=== PATIENT | female | born 1950 | race Two or more races ===

== ENCOUNTER 2017-08-10 13:14 | Emergency (ER) | payer MEDICARE, OTHER ==
[~2017-08-10] VITALS: Ht 154.9 cm; Wt 82.0 kg
[~2017-08-10 13:14] MED LIST: PROVENTIL; SINGULAIR
[2017-08-10 14:20] LABS: INR 1.1; PROTHROMBIN TIME 11.1 sec (9.4-11.6)
[2017-08-10 14:21] LABS: BASOPHILS % 0.2 % (0.0-2.0); EOSINOPHILS % 1.4 % (0.0-5.0); HEMATOCRIT. 39.7 % (36.0-48.0); HEMOGLOBIN. 12.8 g/dL (12.0-16.0); LYMPHOCYTES % 26.8 % (20.0-50.0); MEAN CORPUSCULAR HEMOGLOBIN 25.8 pg (28.0-32.0); MEAN CORPUSCULAR VOLUME 79.8 fL (81.0-99.0); MEAN PLATELET VOLUME 7.9 fl (7.4-10.4); MONOCYTES % 8.5 % (2.0-8.0); NEUTROPHILS % 63.1 % (40.0-76.0); PLATELET 225 x1000/uL (130-400); RED BLOOD CELL COUNT 4.98 mill/uL (4.2-5.4); RED CELL DISTRIBUTION WIDTH 18.7 % (11.6-14.6)
[2017-08-10 14:28] LABS: CARBON DIOXIDE 24 mEq/L (21-32); CHLORIDE 105 mEq/L (98-107); TROPONIN I < 0.02 ng/mL (0.00-0.04)
[2017-08-10] MEDS ORDERED: ALBUTEROL (0.083%) 2.5MG/3ML NEB HHN STA (15:11)
[2017-08-10] MEDS ORDERED: IPRATROPIUM BROMIDE (0.02%) 0.5MG/2.5ML NEB HHN STA (15:11)
[2017-08-10 16:08] VITALS: BP 131/64
== END 2017-08-10 16:28 | disposition home or self-care (01) ==
LOC: ER 13:56
DX: J45.909 Unspecified asthma, uncomplicated (principal); I10 Essential (primary) hypertension; Z88.8 Allergy status to other drugs, medicaments and biological substances; Z90.49 Acquired absence of other specified parts of digestive tract; Z86.718 Personal history of other venous thrombosis and embolism
CPT/HCPCS: 36415; 71010; 78582; 80053; 83880; 84484; 85025; 85610; 93005; 94640; 99285; A9540; A9558; J7611

== ENCOUNTER 2021-09-05 17:50 | Inpatient (IN) | payer MEDICARE, OTHER ==
[~2021-09-05] VITALS: Ht 154.9 cm; Wt 81.6 kg
[2021-09-05] MEDS ORDERED: DILTIAZEM HCL 5MG/ML 5ML VIAL IV ONE (18:00)
[2021-09-05 18:31] LABS: BASOPHILS % 0.3 % (0.0-2.0); EOSINOPHILS % 0.3 % (0.0-5.0); HEMATOCRIT. 42.4 % (36.0-48.0); HEMOGLOBIN. 13.5 g/dL (12.0-16.0); LYMPHOCYTES % 34.7 % (20.0-50.0); MEAN CORPUSCULAR HEMOGLOBIN 25.9 pg (28.0-32.0); MEAN CORPUSCULAR VOLUME 81.5 fL (81.0-99.0); MEAN PLATELET VOLUME 8.5 fl (7.4-10.4); NEUTROPHILS % 54.7 % (40.0-76.0); PLATELET 239 x1000/uL (130-400); RED CELL DISTRIBUTION WIDTH 17.1 % (11.6-14.6)
[2021-09-05 18:35] LABS: CHLORIDE 107 mEq/L (98-107)
[2021-09-05 18:37] LABS: PROTHROMBIN TIME 10.6 sec (9.6-11.0)
[2021-09-05] MEDS ORDERED: ONDANSETRON HCL 4MG/2ML INJ IV ONE (19:30)
[2021-09-05] MEDS ORDERED: SODIUM CHLORIDE 0.9% 500 ML IV ONE (19:30)
[2021-09-05] MEDS ORDERED: DILTIAZEM HCL 5MG/ML 5ML VIAL IV NR (22:15)
[2021-09-05] MEDS ORDERED: DILTIAZEM HCL 60MG TABLET PO ONE (23:00)
[2021-09-06] MEDS ORDERED: ACETAMINOPHEN 325MG TABLET PO PRN (10:00)
[2021-09-06] MEDS ORDERED: IPRATROPIUM/ALBUTEROL 0.5-3(2.5)MG/3ML NEB HHN PRN (10:00)
[2021-09-06] MEDS ORDERED: MAGNESIUM/ALUMINUM HYDROXIDE/SIMETHICONE 30ML UDC PO PRN (10:00)
[2021-09-06] MEDS ORDERED: HYDROCODONE/ACETAMINOPHEN 5/325MG TABLET PO PRN (10:00)
[2021-09-06] MEDS ORDERED: CLONIDINE 0.1MG TABLET PO PRN (10:00)
[2021-09-06] MEDS ORDERED: NALOXONE HCL 0.4MG/ML VIAL IV PRN (10:15)
[2021-09-06] MEDS ORDERED: DILTIAZEM HCL 5MG/ML 5ML VIAL IV PRN (13:30)
[2021-09-06 15:00] VITALS: BP 139/39
[2021-09-06] MEDS: OMEPRAZOLE 20MG CAPSULE EXTENDED RELEASE PO SCH (15:40)
[2021-09-06] MEDS: APIXABAN 5 MG TABLET PO SCH ×2 (15:41→21:32)
[2021-09-06] MEDS: DILTIAZEM HCL 30MG TABLET PO SCH ×2 (15:41→21:31)
[2021-09-06] MEDS: SODIUM CHLORIDE 0.9% 1,000 ML IV SCH (15:42)
[2021-09-06 16:00] VITALS: BP 139/93
[2021-09-06] MEDS ORDERED: DILT180T11 PO (16:26)
[2021-09-06] MEDS ORDERED: PANT40TA51 PO (16:27)
[2021-09-06] MEDS ORDERED: CALC-769 MT (16:34)
[2021-09-06] MEDS ORDERED: APIX2.5T PO (16:34)
[2021-09-06] MEDS ORDERED: FLUT15.844 BOTHNSTRLS (16:34)
[2021-09-06] MEDS ORDERED: LORA10TA7 PO (16:34)
[2021-09-06] MEDS ORDERED: MONT10TA21 PO (16:34)
[2021-09-06] MEDS ORDERED: MELA1TAB51 MT (16:34)
[2021-09-06 20:00] VITALS: BP 108/76
[2021-09-07] VITALS (7 sets, daily range): BP systolic 95–118; BP diastolic 66–81
[2021-09-07] MEDS: DILTIAZEM HCL 30MG TABLET PO SCH ×2 (05:48→14:30)
[2021-09-07] MEDS: OMEPRAZOLE 20MG CAPSULE EXTENDED RELEASE PO SCH (05:48)
[2021-09-07] MEDS: SODIUM CHLORIDE 0.9% 1,000 ML IV SCH (06:19)
[2021-09-07] MEDS: DOCUSATE SODIUM 100MG CAPSULE PO PRN (06:27)
[2021-09-07 07:01] LABS: BASOPHILS % 0.4 % (0.0-2.0); EOSINOPHILS % 1.6 % (0.0-5.0); HEMATOCRIT. 38.9 % (36.0-48.0); HEMOGLOBIN. 12.5 g/dL (12.0-16.0); LYMPHOCYTES % 51.5 % (20.0-50.0); MEAN CORPUSCULAR HEMOGLOBIN 26.4 pg (28.0-32.0); MEAN CORPUSCULAR VOLUME 82.3 fL (81.0-99.0); MONOCYTES % 13.6 % (2.0-8.0); NEUTROPHILS % 32.9 % (40.0-76.0); PLATELET 203 x1000/uL (130-400); RED BLOOD CELL COUNT 4.74 mill/uL (4.2-5.4); RED CELL DISTRIBUTION WIDTH 16.9 % (11.6-14.6)
[2021-09-07 07:16] LABS: CHLORIDE 112 mEq/L (98-107)
[2021-09-07 07:22] LABS: PHOSPHORUS 3.9 mg/dL (2.5-4.9)
[2021-09-07 07:23] LABS: LDL CHOLESTEROL 63 mg/dL (5-100)
[2021-09-07 07:24] LABS: HDL CHOLESTEROL 72 mg/dL (40-59)
[2021-09-07 07:26] LABS: T4 FREE 1.18 ng/dL (0.76-1.46)
[2021-09-07 07:53] LABS: CLARITY URINE CLEAR (CLEAR); COLOR URINE YELLOW (YELLOW); KETONES URINE NEGATIVE (NEGATIVE); LEUKOCYTE ESTERASE URINE TRACE (NEGATIVE); NITRITE URINE NEGATIVE (NEGATIVE); OCCULT BLOOD URINE NEGATIVE (NEGATIVE); PROTEIN URINE NEGATIVE (NEGATIVE); SPECIFIC GRAVITY URINE 1.013 (1.005-1.030); UROBILINOGEN URINE 0.2 E.U./dL (0.2-1.0)
[2021-09-07 08:10] LABS: *AMPHETAMINES SCREEN URINE NEGATIVE (NEGATIVE); *BARBITURATES SCREEN URINE NEGATIVE (NEGATIVE); *BENZODIAZEPINES SCREEN URINE NEGATIVE (NEGATIVE); *COCAINE SCREEN URINE NEGATIVE (NEGATIVE); METHADONE URINE SCREEN NEGATIVE (NEGATIVE)
[2021-09-07 08:11] LABS: CANNABINOID URINE SCREEN NEGATIVE (NEGATIVE); OPIATES URINE SCREEN NEGATIVE (NEGATIVE); PHENCYCLIDINE URINE SCREEN NEGATIVE (NEGATIVE)
[2021-09-07] MEDS: APIXABAN 5 MG TABLET PO SCH ×2 (08:36→21:04)
[2021-09-07] MEDS ORDERED: ATOR20TA65 PO (15:12)
[2021-09-07] MEDS: MONTELUKAST SODIUM 10MG TABLET PO SCH (17:08)
[2021-09-07] MEDS ORDERED: ATORVASTATIN CALCIUM 20MG TABLET PO SCH (21:00)
[2021-09-08] VITALS: BP 107/68
[2021-09-08 04:00] VITALS: BP 103/79
[2021-09-08] MEDS: OMEPRAZOLE 20MG CAPSULE EXTENDED RELEASE PO SCH (06:19)
[2021-09-08 06:34] LABS: BASOPHILS % 0.1 % (0.0-2.0); EOSINOPHILS % 1.2 % (0.0-5.0); HEMATOCRIT. 38.7 % (36.0-48.0); HEMOGLOBIN. 12.4 g/dL (12.0-16.0); MEAN CORPUSCULAR HEMOGLOBIN 26.2 pg (28.0-32.0); MEAN CORPUSCULAR VOLUME 81.4 fL (81.0-99.0); MEAN PLATELET VOLUME 8.9 fl (7.4-10.4); MONOCYTES % 12.8 % (2.0-8.0); NEUTROPHILS % 31.9 % (40.0-76.0); PLATELET 200 x1000/uL (130-400); RED BLOOD CELL COUNT 4.75 mill/uL (4.2-5.4); RED CELL DISTRIBUTION WIDTH 17.1 % (11.6-14.6)
[2021-09-08 07:50] VITALS: BP 125/86
[2021-09-08] MEDS ORDERED: MORPHINE SULFATE 2 MG/ML CPJ (NOT FOR IM USE) IV PRN (08:30)
[2021-09-08] MEDS: APIXABAN 5 MG TABLET PO SCH (08:38)
[2021-09-08] MEDS: DOCUSATE SODIUM 100MG CAPSULE PO PRN (08:39)
[2021-09-08] MEDS ORDERED: LORATADINE 10MG TABLET PO SCH (09:00)
[2021-09-08] MEDS ORDERED: DILTIAZEM HCL 180MG CAPSULE CD 24HR PO SCH (09:00)
[2021-09-08] MEDS ORDERED: CALCIUM CARBONATE/VITAMIN D3 500MG TABLET PO SCH (09:00)
[2021-09-08] MEDS ORDERED: BUDESONIDE 0.5MG/2ML NEB HHN SCH (09:30)
[2021-09-08 12:00] VITALS: BP 114/53
[2021-09-08] MEDS ORDERED: ALBUTEROL (0.083%) 2.5MG/3ML NEB HHN SCH (12:00)
[2021-09-08 13:11] VITALS: BP 114/53
[2021-09-08 16:00] VITALS: BP 110/68
[2021-09-08] MEDS: MONTELUKAST SODIUM 10MG TABLET PO SCH (17:04)
== END 2021-09-08 17:45 | disposition home or self-care (01) | DRG 309 ==
LOC: ER 17:50 → 7EST 23:27 → ENRESERV 09-06 10:38
PROVIDERS: ADMIT Internal Medicine; ATTEND Internal Medicine
DX: I48.91 Unspecified atrial fibrillation (principal); N17.9 Acute kidney failure, unspecified; I47.1 Supraventricular tachycardia; E78.5 Hyperlipidemia, unspecified; J45.909 Unspecified asthma, uncomplicated; N18.2 Chronic kidney disease, stage 2 (mild); I12.9 Hypertensive chronic kidney disease with stage 1 through stage 4 chronic kidney disease, or unspecified chronic kidney disease; I42.9 Cardiomyopathy, unspecified; I27.20 Pulmonary hypertension, unspecified; E66.01 Morbid (severe) obesity due to excess calories; Z68.34 Body mass index [BMI] 34.0-34.9, adult; Z79.01 Long term (current) use of anticoagulants; Z85.42 Personal history of malignant neoplasm of other parts of uterus; Z86.16 Personal history of COVID-19; Z86.718 Personal history of other venous thrombosis and embolism; Z90.710 Acquired absence of both cervix and uterus; Z85.41 Personal history of malignant neoplasm of cervix uteri; Z88.8 Allergy status to other drugs, medicaments and biological substances; Z88.2 Allergy status to sulfonamides; Z91.041 Radiographic dye allergy status; Z90.49 Acquired absence of other specified parts of digestive tract; Z98.891 History of uterine scar from previous surgery
CPT/HCPCS: 36415; 71045; 78580; 80048; 80053; 80061; 80076; 80305; 81003; 83735; 83880; 84100; 84439; 84443; 84484; 85025; 93005; 93306; 93970; 97162; 97166; 99291; J2270; J2405; J3490; J7040; A4315

== ENCOUNTER 2022-01-22 13:44 | Inpatient (IN) | payer MEDICARE, OTHER ==
[~2022-01-22] VITALS: Ht 154.9 cm; Wt 86.2 kg
[~2022-01-22 13:44] MED LIST changes: +APIX2.5T PO; +ATOR20TA65 PO; +CALC-769 MT; +DILT180T11 PO; +FLUT15.844 BOTHNSTRLS; +LORA10TA7 PO; +MELA1TAB51 MT; +MONT10TA21 PO; +PANT40TA51 PO; -PROVENTIL; -SINGULAIR
[2022-01-22 15:30] LABS: HEMATOCRIT. 38.2 % (36.0-48.0); HEMOGLOBIN. 12.4 g/dL (12.0-16.0); MEAN CORPUSCULAR HEMOGLOBIN 25.4 pg (28.0-32.0); MEAN CORPUSCULAR VOLUME 78.2 fL (81.0-99.0); MEAN PLATELET VOLUME 8.8 fl (7.4-10.4); PLATELET 167 x1000/uL (130-400); RED BLOOD CELL COUNT 4.89 mill/uL (4.2-5.4)
[2022-01-22 15:40] LABS: CHLORIDE 108 mEq/L (98-107)
[2022-01-22 16:14] LABS: PLATELET ESTIMATE NORMAL
[2022-01-23] MEDS ORDERED: DOCUSATE SODIUM 100MG CAPSULE PO PRN (01:00)
[2022-01-23] MEDS ORDERED: ONDANSETRON HCL 4MG/2ML INJ IV PRN (01:00)
[2022-01-23] MEDS ORDERED: IPRATROPIUM/ALBUTEROL 0.5-3(2.5)MG/3ML NEB HHN PRN (01:00)
[2022-01-23] MEDS ORDERED: CEFTRIAXONE 1 G PREMIX 50 ML IV SCH (01:00)
[2022-01-23 01:30] VITALS: BP 140/64
[2022-01-23] MEDS ORDERED: CEFTRIAXONE 1,000 MG in DEXTROSE 5% WATER 50 ML IV SCH (03:00)
[2022-01-23 03:07] LABS: HEMOGLOBIN. 12.5 g/dL (12.0-16.0); MEAN CORPUSCULAR HEMOGLOBIN 24.8 pg (28.0-32.0); MEAN CORPUSCULAR VOLUME 77.4 fL (81.0-99.0); MEAN PLATELET VOLUME 8.9 fl (7.4-10.4); PLATELET 177 x1000/uL (130-400); RED BLOOD CELL COUNT 5.03 mill/uL (4.2-5.4); RED CELL DISTRIBUTION WIDTH 19.6 % (11.6-14.6)
[2022-01-23 03:09] LABS: CHLORIDE 111 mEq/L (98-107)
[2022-01-23 03:19] LABS: PROTHROMBIN TIME 10.9 sec (9.6-11.0)
[2022-01-23] MEDS ORDERED: TRET20CR TP (03:19)
[2022-01-23] MEDS ORDERED: BENZ200C52 MT (03:19)
[2022-01-23] MEDS ORDERED: FLUT9.9S BOTHNSTRLS (03:19)
[2022-01-23] MEDS ORDERED: FAMO20TA8 MT (03:19)
[2022-01-23] MEDS ORDERED: FLEC100T2 MT (03:19)
[2022-01-23] MEDS ORDERED: LACT10SO7 MT (03:19)
[2022-01-23] MEDS ORDERED: CHOL400D7 PO (03:19)
[2022-01-23] MEDS ORDERED: PROM6.254 MT (03:19)
[2022-01-23] MEDS ORDERED: OMEP40CA20 MT (03:19)
[2022-01-23] MEDS ORDERED: ESCI5TAB16 PO (03:19)
[2022-01-23] MEDS ORDERED: CETI10CA2 MT (03:19)
[2022-01-23] MEDS ORDERED: APIX5TAB MT (03:19)
[2022-01-23] MEDS ORDERED: AZIT250T12 MT (03:19)
[2022-01-23] MEDS ORDERED: HYDROQUINONE TOP (03:19)
[2022-01-23] MEDS ORDERED: BUDE6HFA INH (03:19)
[2022-01-23] MEDS ORDERED: EPIN0.3P3 IM (03:19)
[2022-01-23] MEDS ORDERED: AZEL137S7 BOTHNSTRLS (03:19)
[2022-01-23] MEDS ORDERED: ASCO-362 PO (03:19)
[2022-01-23] MEDS ORDERED: SIME80TA15 PO (03:19)
[2022-01-23] MEDS ORDERED: ATOR20TA65 MT (03:19)
[2022-01-23] MEDS ORDERED: ALBU05 NEB (03:19)
[2022-01-23] MEDS ORDERED: ACET-2708 MT (03:19)
[2022-01-23] MEDS ORDERED: CARB15DR EACHEYE (03:19)
[2022-01-23] MEDS ORDERED: CALC-586 MT (03:19)
[2022-01-23] MEDS ORDERED: DILT120C11 MT (03:19)
[2022-01-23 03:53] LABS: PLATELET ESTIMATE NORMAL
[2022-01-23 04:00] VITALS: BP 127/52
[2022-01-23] MEDS: ENOXAPARIN 100MG/ML SYR SUBCUT SCH ×2 (05:27→17:04)
[2022-01-23] MEDS: GUAIFENESIN 200MG/10ML SUGAR FREE UDC PO PRN (05:27)
[2022-01-23] MEDS ORDERED: OMEPRAZOLE 20MG CAPSULE EXTENDED RELEASE PO SCH (06:45)
[2022-01-23 08:25] LABS: CLARITY URINE CLEAR (CLEAR); COLOR URINE YELLOW (YELLOW); KETONES URINE NEGATIVE (NEGATIVE); LEUKOCYTE ESTERASE URINE NEGATIVE (NEGATIVE); NITRITE URINE NEGATIVE (NEGATIVE); OCCULT BLOOD URINE NEGATIVE (NEGATIVE); PH URINE 5.5 (4.5-8.0); PROTEIN URINE NEGATIVE (NEGATIVE); SPECIFIC GRAVITY URINE 1.014 (1.005-1.030); UROBILINOGEN URINE 0.2 E.U./dL (0.2-1.0)
[2022-01-23 08:27] VITALS: BP 127/60
[2022-01-23] MEDS: CEFEPIME 1,000 MG in DEXTROSE 5% WATER 50 ML IV SCH (10:12)
[2022-01-23] MEDS: DILTIAZEM HCL 60MG TABLET PO SCH (10:12)
[2022-01-23 12:00] VITALS: BP 125/62
[2022-01-23 16:00] VITALS: BP 130/67
[2022-01-23] MEDS: CETIRIZINE 10MG TABLET PO SCH (16:57)
[2022-01-23 20:00] VITALS: BP 104/37
[2022-01-23] MEDS: DOXEPIN HCL 25MG CAPSULE PO SCH (21:00)
[2022-01-23] MEDS: ATORVASTATIN CALCIUM 20MG TABLET PO SCH (21:33)
[2022-01-23] MEDS: FAMOTIDINE 20MG TABLET PO SCH (21:33)
[2022-01-23] MEDS: FLUTICASONE PROPIONATE 50MCG/SPRAY BOTTLE BOTHNSTRLS SCH (21:34)
[2022-01-24] VITALS: BP 130/52
[2022-01-24 04:00] VITALS: BP 173/84
[2022-01-24] MEDS: ENOXAPARIN 100MG/ML SYR SUBCUT SCH ×2 (05:13→17:36)
[2022-01-24] MEDS: GUAIFENESIN 200MG/10ML SUGAR FREE UDC PO PRN ×2 (05:16→20:42)
[2022-01-24] MEDS: ACETAMINOPHEN 325MG TABLET PO PRN (05:36)
[2022-01-24 07:41] LABS: BASOPHILS % 0.2 % (0.0-2.0); HEMATOCRIT. 36.5 % (36.0-48.0); HEMOGLOBIN. 11.9 g/dL (12.0-16.0); LYMPHOCYTES % 58.5 % (20.0-50.0); MEAN CORPUSCULAR HEMOGLOBIN 25.4 pg (28.0-32.0); MEAN PLATELET VOLUME 8.8 fl (7.4-10.4); MONOCYTES % 13.8 % (2.0-8.0); NEUTROPHILS % 25.5 % (40.0-76.0); PLATELET 167 x1000/uL (130-400); RED BLOOD CELL COUNT 4.68 mill/uL (4.2-5.4); RED CELL DISTRIBUTION WIDTH 19.8 % (11.6-14.6)
[2022-01-24 08:00] VITALS: BP 145/60
[2022-01-24] MEDS: CETIRIZINE 10MG TABLET PO SCH (10:43)
[2022-01-24] MEDS: DILTIAZEM HCL 60MG TABLET PO SCH (10:43)
[2022-01-24] MEDS: CEFEPIME 1,000 MG in DEXTROSE 5% WATER 50 ML IV SCH (11:24)
[2022-01-24] MEDS: FLUTICASONE PROPIONATE 50MCG/SPRAY BOTTLE BOTHNSTRLS SCH ×2 (11:25→20:44)
[2022-01-24 12:00] VITALS: BP 142/55
[2022-01-24] MEDS: FLECAINIDE 50MG TABLET PO SCH ×2 (14:35→22:50)
[2022-01-24 16:00] VITALS: BP 123/63
[2022-01-24 20:00] VITALS: BP 121/76
[2022-01-24] MEDS: ATORVASTATIN CALCIUM 20MG TABLET PO SCH (20:42)
[2022-01-24] MEDS: FAMOTIDINE 20MG TABLET PO SCH (20:42)
[2022-01-24] MEDS: DOXEPIN HCL 25MG CAPSULE PO SCH (20:44)
[2022-01-25] VITALS: BP 117/48
[2022-01-25] MEDS: ACETAMINOPHEN 325MG TABLET PO PRN (05:49)
[2022-01-25] MEDS: GUAIFENESIN 200MG/10ML SUGAR FREE UDC PO PRN ×2 (05:49→13:56)
[2022-01-25] MEDS: ENOXAPARIN 100MG/ML SYR SUBCUT SCH (05:49)
[2022-01-25 07:12] LABS: BASOPHILS % 0.3 % (0.0-2.0); EOSINOPHILS % 2.5 % (0.0-5.0); HEMATOCRIT. 37.7 % (36.0-48.0); HEMOGLOBIN. 12.2 g/dL (12.0-16.0); LYMPHOCYTES % 57.3 % (20.0-50.0); MEAN CORPUSCULAR HEMOGLOBIN 25.3 pg (28.0-32.0); MEAN CORPUSCULAR VOLUME 77.8 fL (81.0-99.0); MEAN PLATELET VOLUME 8.8 fl (7.4-10.4); MONOCYTES % 11.2 % (2.0-8.0); NEUTROPHILS % 28.7 % (40.0-76.0); PLATELET 161 x1000/uL (130-400); RED BLOOD CELL COUNT 4.84 mill/uL (4.2-5.4); RED CELL DISTRIBUTION WIDTH 19.9 % (11.6-14.6)
[2022-01-25 08:28] VITALS: BP 138/70
[2022-01-25] MEDS ORDERED: DILTIAZEM HCL 120MG CAPSULE CD 24HR PO SCH (09:00)
[2022-01-25] MEDS: FLECAINIDE 50MG TABLET PO SCH (09:49)
[2022-01-25] MEDS: CEFEPIME 1,000 MG in DEXTROSE 5% WATER 50 ML IV SCH (09:50)
[2022-01-25] MEDS: CETIRIZINE 10MG TABLET PO SCH (09:50)
[2022-01-25] MEDS: FLUTICASONE PROPIONATE 50MCG/SPRAY BOTTLE BOTHNSTRLS SCH (09:51)
[2022-01-25 10:39] VITALS: BP 138/70
[2022-01-25 11:37] VITALS: BP 145/55
== END 2022-01-25 16:55 | disposition home or self-care (01) | DRG 206 ==
LOC: ER 13:44 → 5WST 18:05 → ENRESERV 22:53
PROVIDERS: ADMIT Internal Medicine; ATTEND Internal Medicine
DX: M94.0 Chondrocostal junction syndrome [Tietze] (principal); I42.9 Cardiomyopathy, unspecified; I48.0 Paroxysmal atrial fibrillation; I10 Essential (primary) hypertension; I27.20 Pulmonary hypertension, unspecified; C53.9 Malignant neoplasm of cervix uteri, unspecified; I49.5 Sick sinus syndrome; Z20.822 Contact with and (suspected) exposure to COVID-19; J45.909 Unspecified asthma, uncomplicated; F32.A Depression, unspecified; I36.1 Nonrheumatic tricuspid (valve) insufficiency; F43.10 Post-traumatic stress disorder, unspecified; Z85.41 Personal history of malignant neoplasm of cervix uteri; Z90.710 Acquired absence of both cervix and uterus; Z88.2 Allergy status to sulfonamides; Z88.8 Allergy status to other drugs, medicaments and biological substances; Z91.041 Radiographic dye allergy status; Z79.899 Other long term (current) drug therapy; Z79.01 Long term (current) use of anticoagulants; Z95.0 Presence of cardiac pacemaker; J32.9 Chronic sinusitis, unspecified; D72.819 Decreased white blood cell count, unspecified; D72.825 Bandemia
CPT/HCPCS: 36415; 71045; 80048; 80053; 80061; 81003; 83735; 83880; 84145; 84484; 85025; 87426; 93005; 93306; 94640; 99285; J0692; J0696; J1650; J7060

== ENCOUNTER 2022-10-22 16:21 | Inpatient (IN) | payer MEDICARE, OTHER ==
[~2022-10-22] VITALS: Ht 154.9 cm; Wt 90.7 kg
[~2022-10-22 16:21] MED LIST changes: +ACET-2708 MT; +ALBU05 NEB; -APIX2.5T PO; +APIX5TAB MT; +ASCO-362 PO; +ATOR20TA65 MT; -ATOR20TA65 PO; +AZEL137S7 BOTHNSTRLS; +BENZ200C52 MT; +BUDE6HFA INH; +CALC-586 MT; +CARB15DR EACHEYE; +CETI10CA2 MT; +CHOL400D7 PO; +DILT120C11 MT; -DILT180T11 PO; +EPIN0.3P3 IM; +ESCI5TAB16 PO; +FAMO20TA8 MT; +FLEC100T2 MT; -FLUT15.844 BOTHNSTRLS; +FLUT9.9S BOTHNSTRLS; +HYDROQUINONE TOP; +LACT10SO7 MT; -LORA10TA7 PO; -MELA1TAB51 MT; -MONT10TA21 PO; +OMEP40CA20 MT; -PANT40TA51 PO; +PROM6.254 MT; +SIME80TA15 PO; +TRET20CR TP
[2022-10-22] MEDS ORDERED: ACETAMINOPHEN 325MG TABLET PO ONE (16:30)
[2022-10-22 17:28] LABS: BASOPHILS % 0.3 % (0.0-2.0); EOSINOPHILS % 0.6 % (0.0-5.0); HEMATOCRIT. 42.4 % (36.0-48.0); HEMOGLOBIN. 13.8 g/dL (12.0-16.0); LYMPHOCYTES % 35.8 % (20.0-50.0); MEAN CORPUSCULAR VOLUME 88.9 fL (81.0-99.0); MONOCYTES % 11.6 % (2.0-8.0); NEUTROPHILS % 51.7 % (40.0-76.0); PLATELET 191 x1000/uL (130-400); RED BLOOD CELL COUNT 4.77 mill/uL (4.2-5.4); RED CELL DISTRIBUTION WIDTH 13.3 % (11.6-14.6)
[2022-10-22] MEDS ORDERED: MORPHINE SULFATE 4 MG/ML CPJ (NOT FOR IM USE) IV ONE (17:30)
[2022-10-22] MEDS ORDERED: CARBAMAZEPINE 200MG TABLET PO ONE (17:30)
[2022-10-22 17:35] LABS: CHLORIDE 107 mEq/L (98-107)
[2022-10-22 17:37] LABS: PROTHROMBIN TIME 10.8 sec (9.6-11.0)
[2022-10-22 17:46] LABS: ETHANOL BLOOD < 10 mg/dL
[2022-10-22] MEDS ORDERED: MORPHINE SULFATE 4 MG/ML CPJ (NOT FOR IM USE) IV NR (20:30)
[2022-10-22] MEDS ORDERED: ACETAMINOPHEN 325MG TABLET PO NR (20:30)
[2022-10-22 20:57] LABS: CLARITY URINE CLEAR (CLEAR); COLOR URINE YELLOW (YELLOW); KETONES URINE NEGATIVE (NEGATIVE); LEUKOCYTE ESTERASE URINE NEGATIVE (NEGATIVE); NITRITE URINE NEGATIVE (NEGATIVE); OCCULT BLOOD URINE NEGATIVE (NEGATIVE); PH URINE 6.5 (4.5-8.0); PROTEIN URINE NEGATIVE (NEGATIVE); SPECIFIC GRAVITY URINE 1.017 (1.005-1.030); UROBILINOGEN URINE 0.2 E.U./dL (0.2-1.0)
[2022-10-22 21:14] LABS: *AMPHETAMINES SCREEN URINE NEGATIVE (NEGATIVE); *BARBITURATES SCREEN URINE NEGATIVE (NEGATIVE); *BENZODIAZEPINES SCREEN URINE NEGATIVE (NEGATIVE); *COCAINE SCREEN URINE NEGATIVE (NEGATIVE); CANNABINOID URINE SCREEN NEGATIVE (NEGATIVE); METHADONE URINE SCREEN NEGATIVE (NEGATIVE); OPIATES URINE SCREEN NEGATIVE (NEGATIVE); PHENCYCLIDINE URINE SCREEN NEGATIVE (NEGATIVE)
[2022-10-22] MEDS ORDERED: METHYLPREDNISOLONE SOD SUCC 125 MG/2 ML VIAL IV NR (21:45)
[2022-10-22] MEDS ORDERED: HYDROCODONE/ACETAMINOPHEN 5/325MG TABLET PO PRN (23:30)
[2022-10-22] MEDS ORDERED: IPRATROPIUM/ALBUTEROL 0.5-3(2.5)MG/3ML NEB HHN PRN (23:30)
[2022-10-22] MEDS ORDERED: ACETAMINOPHEN 325MG TABLET PO PRN ×2 (23:30)
[2022-10-22] MEDS ORDERED: MAGNESIUM/ALUMINUM HYDROXIDE/SIMETHICONE 30ML UDC PO PRN (23:30)
[2022-10-22] MEDS ORDERED: GUAIFENESIN 200MG/10ML SUGAR FREE UDC PO PRN (23:30)
[2022-10-22] MEDS ORDERED: CLONIDINE 0.1MG TABLET PO PRN (23:30)
[2022-10-22] MEDS ORDERED: ONDANSETRON HCL 4MG/2ML INJ IV PRN (23:30)
[2022-10-22] MEDS ORDERED: DOCUSATE SODIUM 100MG CAPSULE PO PRN (23:30)
[2022-10-23] MEDS ORDERED: CARBAMAZEPINE 100MG TABLET CHEW PO SCH (01:00)
[2022-10-23] MEDS ORDERED: FLECAINIDE ACETATE MT SCH (09:00)
[2022-10-23] MEDS ORDERED: DILTIAZEM HCL MT SCH (09:00)
[2022-10-23] MEDS ORDERED: ENOXAPARIN 40MG/0.4ML SYR SUBCUT SCH (09:00)
[2022-10-23] MEDS: PANTOPRAZOLE SODIUM 40 MG/VIAL IV SCH (09:39)
[2022-10-23] MEDS: DILTIAZEM HCL 120MG CAPSULE ER 24HR PO SCH (09:39)
[2022-10-23] MEDS: FLECAINIDE 50MG TABLET PO SCH ×2 (09:40→22:30)
[2022-10-23] MEDS: APIXABAN 5 MG TABLET PO SCH ×2 (09:40→16:57)
[2022-10-23] MEDS ORDERED: NALOXONE HCL 0.4MG/ML VIAL IV PRN (13:00)
[2022-10-23 14:20] VITALS: BP 138/59
[2022-10-23 16:00] VITALS: BP 129/72
[2022-10-23] MEDS: CARBAMAZEPINE 100MG TABLET CHEW PO SCH (16:57)
[2022-10-23] MEDS ORDERED: ATORVASTATIN CALCIUM 20MG TABLET PO SCH (17:00)
[2022-10-23 20:00] VITALS: BP 143/56
[2022-10-23 21:03] LABS: BASOPHILS % 0.2 % (0.0-2.0); EOSINOPHILS % 1.2 % (0.0-5.0); HEMATOCRIT. 39.6 % (36.0-48.0); HEMOGLOBIN. 12.8 g/dL (12.0-16.0); MEAN CORPUSCULAR HEMOGLOBIN 29.2 pg (28.0-32.0); MEAN CORPUSCULAR VOLUME 89.9 fL (81.0-99.0); MEAN PLATELET VOLUME 8.8 fl (7.4-10.4); MONOCYTES % 13.6 % (2.0-8.0); PLATELET 171 x1000/uL (130-400); RED CELL DISTRIBUTION WIDTH 13.4 % (11.6-14.6)
[2022-10-23 21:14] LABS: CHLORIDE 106 mEq/L (98-107)
[2022-10-23 21:27] LABS: CREATINE KINASE 102 IU/L (26-192); HDL CHOLESTEROL 64 mg/dL (40-59); LDL CHOLESTEROL 104 mg/dL (5-100); T4 FREE 1.08 ng/dL (0.76-1.46)
[2022-10-23] MEDS: CITALOPRAM HYDROBROMIDE 10MG TABLET PO SCH (22:25)
[2022-10-23] MEDS ORDERED: LORAZEPAM 1MG TABLET PO NR (23:15)
[2022-10-24] VITALS: BP 131/64
[2022-10-24 01:55] LABS: CREATINE KINASE 85 IU/L (26-192)
[2022-10-24 04:00] VITALS: BP 154/87
[2022-10-24 08:00] VITALS: BP 102/54
[2022-10-24] MEDS: APIXABAN 5 MG TABLET PO SCH ×2 (08:53→17:38)
[2022-10-24] MEDS: PANTOPRAZOLE SODIUM 40 MG/VIAL IV SCH (08:53)
[2022-10-24] MEDS: FLECAINIDE 50MG TABLET PO SCH ×2 (08:55→21:11)
[2022-10-24] MEDS: DILTIAZEM HCL 120MG CAPSULE ER 24HR PO SCH (08:55)
[2022-10-24] MEDS: CARBAMAZEPINE 100MG TABLET CHEW PO SCH ×2 (09:01→17:39)
[2022-10-24 12:30] VITALS: BP 129/56
[2022-10-24 16:00] VITALS: BP 138/50
[2022-10-24 20:00] VITALS: BP 132/61
[2022-10-24] MEDS ORDERED: ATORVASTATIN CALCIUM 20MG TABLET PO SCH (21:00)
[2022-10-24] MEDS: CITALOPRAM HYDROBROMIDE 10MG TABLET PO SCH (21:09)
[2022-10-25] VITALS: BP 127/88
[2022-10-25 04:00] VITALS: BP 143/59
[2022-10-25 08:57] VITALS: BP 143/63
[2022-10-25] MEDS ORDERED: FAMOTIDINE 20MG TABLET PO SCH (09:00)
[2022-10-25] MEDS: APIXABAN 5 MG TABLET PO SCH (09:04)
[2022-10-25] MEDS: CARBAMAZEPINE 100MG TABLET CHEW PO SCH (09:04)
[2022-10-25] MEDS: FLECAINIDE 50MG TABLET PO SCH (09:05)
[2022-10-25] MEDS: DILTIAZEM HCL 120MG CAPSULE ER 24HR PO SCH (09:11)
[2022-10-25 10:06] VITALS: BP 143/63
== END 2022-10-25 11:15 | disposition home health service (06) | DRG 74 ==
LOC: ER 16:21 → MICUSO 22:10 → EDBEDREQ 22:11 → 8WST 10-23 15:29
PROVIDERS: ADMIT Hospitalist; ATTEND Hospitalist
DX: G50.0 Trigeminal neuralgia (principal); R51.9 Headache, unspecified; I11.0 Hypertensive heart disease with heart failure; I48.0 Paroxysmal atrial fibrillation; I50.9 Heart failure, unspecified; J45.909 Unspecified asthma, uncomplicated; R73.9 Hyperglycemia, unspecified; Z79.01 Long term (current) use of anticoagulants; Z85.41 Personal history of malignant neoplasm of cervix uteri; Z90.710 Acquired absence of both cervix and uterus; Z91.012 Allergy to eggs; Z95.0 Presence of cardiac pacemaker; Z88.2 Allergy status to sulfonamides; Z79.899 Other long term (current) drug therapy
CPT/HCPCS: 36415; 71045; 80053; 80061; 80305; 80320; 81003; 82550; 83036; 83880; 84439; 84443; 84484; 85025; 85651; 87426; 93005; 97162; 97166; 99285; C9113; J2270; J2930; G0480

== ENCOUNTER 2025-10-01 09:45 | Emergency (ER) | payer MEDICARE, OTHER ==
[~2025-10-01] VITALS: Ht 154.9 cm; Wt 50.0 kg
[~2025-10-01 09:45] MED LIST changes: +AZEL137S10 BOTHNSTRLS; -AZEL137S7 BOTHNSTRLS; +PROM6.2527 MT; -PROM6.254 MT
[2025-10-01 09:46] VITALS: O2SAT 99
[2025-10-01 10:49] LABS: BASOPHILS % 0.3 % (0.0-2.0); EOSINOPHILS % 1.5 % (0.0-5.0); HEMATOCRIT. 43.6 % (36.0-48.0); HEMOGLOBIN. 13.8 g/dL (12.0-16.0); LYMPHOCYTES % 40.5 % (20.0-50.0); MEAN PLATELET VOLUME 9.1 fl (7.4-10.4); MONOCYTES % 10.9 % (2.0-8.0); NEUTROPHILS % 46.8 % (40.0-76.0); PLATELET 171 x1000/uL (130-400); RED BLOOD CELL COUNT 4.92 mill/uL (4.2-5.4); RED CELL DISTRIBUTION WIDTH 14.2 % (11.6-14.6)
[2025-10-01 11:06] LABS: CREATININE 1.0 mg/dL (0.6-1.0); TROPONIN I HIGH SENSITIVITY < 4 ng/L (3.0-34); UREA NITROGEN BLOOD 10 mg/dL (9-23)
[2025-10-01 11:08] LABS: ASPARTATE AMINOTRANSFERASE 21 IU/L (<34)
[2025-10-01 11:09] LABS: BILIRUBIN DIRECT 0.2 mg/dL (<=3.0); BILIRUBIN TOTAL 0.5 mg/dL (0.1-1.0); PROTEIN TOTAL 6.9 g/dL (6.0-8.3)
[2025-10-01 12:55] VITALS: BP 150/74; PULSE 60; RESP 14; TEMP 37.1; O2SAT 99
== END 2025-10-01 12:56 | disposition home or self-care (01) ==
LOC: ER 10:19 → CMPBEDREQ 10-02 07:40
DX: R07.89 Other chest pain (principal); I10 Essential (primary) hypertension; I48.91 Unspecified atrial fibrillation; J45.909 Unspecified asthma, uncomplicated; Z79.01 Long term (current) use of anticoagulants; Z79.51 Long term (current) use of inhaled steroids; Z90.710 Acquired absence of both cervix and uterus; Z79.899 Other long term (current) drug therapy; Z86.718 Personal history of other venous thrombosis and embolism; Z95.0 Presence of cardiac pacemaker; Z90.49 Acquired absence of other specified parts of digestive tract; Z91.0120 Allergy to eggs, unspecified; Z88.8 Allergy status to other drugs, medicaments and biological substances; Z88.2 Allergy status to sulfonamides; Z88.1 Allergy status to other antibiotic agents
CPT/HCPCS: 36415; 71045; 80048; 80076; 83880; 84484; 85025; 93005; 99285